=== PATIENT | male | born 1975 | race Asian ===

== ENCOUNTER → 2017-05-27 | Outpatient (CLI) | payer BC | LOC: COL.RAD 16:08 | DX: R07.89 Other chest pain (principal); R79.89 Other specified abnormal findings of blood chemistry; R94.31 Abnormal electrocardiogram [ECG] [EKG]; Z78.9 Other specified health status | CPT/HCPCS: Q9967 ==

== ENCOUNTER → 2017-05-27 | Outpatient (CLI) | payer BC | LOC: ZCOL.LAB 12:25 | DX: R07.89 Other chest pain (principal) ==